=== PATIENT | female | born 1975 | race Caucasian/White ===

== ENCOUNTER 2017-01-24 22:51 | Emergency (ER) | payer SELFPAY ==
[~2017-01-24] VITALS: Ht 165.1 cm; Wt 54.5 kg
[2017-01-25 01:05] VITALS: BP 164/94
== END 2017-01-25 01:05 | disposition home or self-care (01) ==
LOC: ED 22:51
DX: S00.83XA Contusion of other part of head, initial encounter (principal); S01.81XA Laceration without foreign body of other part of head, initial encounter; S09.8XXA Other specified injuries of head, initial encounter; Y04.0XXA Assault by unarmed brawl or fight, initial encounter; Z23 Encounter for immunization; R40.2412 Glasgow coma scale score 13-15, at arrival to emergency department
CPT/HCPCS: 90715; A4550; A6402